=== PATIENT | female | born 1960 | race African-American/Black ===

== ENCOUNTER 2020-02-13 10:45 | Emergency (ER) | payer OTHER, SELFPAY ==
[2020-02-13 10:54] VITALS: BP 203/101; BP 203/94; PULSE 70; RESP 20; TEMP 36.3; O2SAT 100
--- NOTE | 2020-02-13 11:17 | ED.GENADULT ---
HPI - General Adult General Chief complaint: Unspecified Stated complaint: BP Time Seen by Provider: 02/13/20 11:24 Source: patient Mode of arrival: ambulatory Limitations: no limitations History of Present Illness HPI narrative: Natali Godinez is a 59 yo female with a PMH of HTN who comes to [facility] with elevated blood pressure and request for refill on amlodipine 5 mg that was started back in April. She has not follow-up with primary care blood pressure is quite elevated today-discussed with patient need to monitor blood pressure on a regular basis Related Data Allergies Allergy/AdvReac Type Severity Reaction Status Date / Time No Known Allergies Allergy Verified 02/13/20 11:38 Review of Systems Review of Systems: Narrative: CONSTITUTIONAL: Denies fever, chills, sweats. EYES: Denies visual changes, redness, discharge. ENT: Denies rhinorrhea, congestion, sore throat, otalgia. CARDIOVASCULAR: Denies chest pain, palpitations, edema. RESPIRATORY: Denies dyspnea, wheezing, cough GASTROINTESTINAL: Denies abdominal pain, nausea, vomiting, diarrhea. GENITOURINARY: Denies dysuria, hematuria, abnormal discharge SKIN: Denies rash or itching. NEUROLOGIC: Denies numbness, or focal weakness. PSYCHIATRIC: Denies anxiety or depression. Elevated blood pressure, needs medication refill PMFSH Past Medical History Medical History Hypertension Family History Family History (Updated 02/13/20 @ 11:30 by Sandhya Caicedo CNP) Other Diabetes mellitus Hypertension Social History Social History (Updated 02/13/20 @ 11:31 by Sandhya Caicedo CNP) Smoking packs per day: 0.25 Smoking cigarettes per day: 5.0 Smoking status: Current every day smoker Alcohol intake: current Comments At time of signature, I agree with nursing past medical, surgical, social and family history. There is no relevant family history pertinent to the presenting complaint. Exam Narrative: Exam Narrative: GENERAL: This is a well-nourished, well-developed patient, in mild distress. HEAD: normocephalic, atraumatic. EYES: Sclera clear/white. Vision is grossly intact. EARS: External ears normal,Hearing grossly intact. NOSE: External nose normal without nasal discharge, THROAT: Mucous membranes moist, NECK: Neck supple, CARDIOVASCULAR: Regular rate and rhythm without murmurs, gallops, or rubs. RESPIRATORY: Coarse to auscultation. Breath sounds equal bilaterally. No wheezes, rales, or rhonchi. GASTROINTESTINAL: Abdomen soft, SKIN: warm, intact with no suspicious lesions or rash, good texture and turgor. NEURO: awake, alert, and oriented to person, place and time. There were no obvious focal neurologic abnormalities. Steady gait EXTREMITIES: Normal range of motion. BACK: Nontender without deformity Course Course Emergency Course: Patient here for elevated blood pressure and is on a blood pressure medication Renewed amlodipine started her at 5 mg x 3 days then increase to 10 mg she is to monitor blood pressure daily and set up appointment with either physician at [facility] are trying to contact her old PCP for further blood work and additional blood pressure medication Vital Signs Vital signs: Vital Signs Temperature 97.4 F L 02/13/20 10:54 Pulse Rate 70 02/13/20 10:54 Respiratory Rate 20 02/13/20 10:54 Blood Pressure 203/101 H 02/13/20 10:54 Pulse Oximetry 100 02/13/20 10:54 Temperature 97.4 F L 02/13/20 10:54 Pulse Rate 70 02/13/20 10:54 Respiratory Rate 20 02/13/20 10:54 Blood Pressure 203/94 H 02/13/20 10:54 Pulse Oximetry 100 02/13/20 10:54 Medical Decision Making ABG Differential Diagnosis Differential Diagnosis: Blood pressure medication refill Vital Signs Vital Signs: Vital Signs Temperature 97.4 F L 02/13/20 10:54 Pulse Rate 70 02/13/20 10:54 Respiratory Rate 20 02/13/20 10:54 Blood Pressure
== END 2020-02-13 11:40 | disposition home or self-care (01) ==
PROVIDERS: Emergency Provider Nurse Practitioner; PCP Internal Medicine
DX: Z76.0 Encounter for issue of repeat prescription (principal); I10 Essential (primary) hypertension; F17.210 Nicotine dependence, cigarettes, uncomplicated
CPT/HCPCS: 99213; G0463